=== PATIENT | female | born 1955 | race Caucasian/White ===

== ENCOUNTER 2016-05-20 19:43 | Emergency (ER) | payer BC ==
[2016-05-20 19:49] VITALS: TEMP 98.4
[2016-05-20] MEDS ORDERED: NS 1,000 ML IV ONE ×2 (20:15→20:31)
[2016-05-20 20:22] LABS: % IMMATURE GRANULYOCYTES 0.9 % (0.0-1.1); ABSOLUTE IMMATURE GRANULOCYTES 0.11 10^3/uL (0.00-0.10); ADD DIFF? NO; ADD MORPH? NO; ADD SCAN? NO; ATYPICAL LYMPHOCYTE FLAG 10 (0-99); FRAGMENT RBC FLAG 0 (0-99); HEMOGLOBIN 11.5 g/dL (12.6-16.3); LEFT SHIFT FLG 0 (0-99); LIPEMIA HEMOLYSIS FLAG 90 (0-99); MEAN CELL HEMOGLOBIN 29.4 pg (27.9-34.1); MEAN CELL HEMOGLOBIN CONCENTR. 33.8 g/dL (32.4-36.7); MEAN PLATELET VOLUME 9.6 fL (8.7-11.7); PLATELET CLUMPS FLAG 0 (0-99); PLATELET COUNT 316 10^3/uL (150-400); RED BLOOD CELL COUNT 3.91 10^6/uL (4.18-5.33); RED CELL DISTRIBUTION WIDTH 13.2 % (11.5-15.2)
[2016-05-20 20:30] LABS: ANION GAP 16 mEq/L (8-16); CALCIUM 9.8 mg/dL (8.5-10.4); CARBON DIOXIDE 20 mEq/l (22-31); CHLORIDE 95 mEq/L (97-110); CREATININE 3.9 mg/dL (0.6-1.0); GLOMERULAR FILTRATION RATE 12; GLUCOSE 276 mg/dL (70-100); POTASSIUM 4.5 mEq/L (3.5-5.2); SODIUM 131 mEq/L (134-144)
--- NOTE | 2016-05-20 20:31 | EDPHY ---
H & P Time Seen by Provider: 05/20/16 20:21 HPI/ROS: Chief complaint. Dehydrated HPI. Patient has had decreased appetite for several days. She is an insulin- dependent diabetic. She saw her PCP today who referred her to the emergency department for hydration. She has had nausea and vomiting for 3 days. She did take some insulin before coming to the ED. She was also diagnosed with a UTI earlier today and started on antibiotics and given a prescription for Zofran. No chest pain, shortness of breath, abdominal pain ROS Constitutional. no fever/chills, no weakness Eyes. no problems with vision ENT. no sore throat, no nasal drainage Cardiovascular. no chest pain Respiratory. no shortness of breath, no cough Abdominal. Nausea vomiting and decreased appetite . Urinary tract infection MS. no calf pain/swelling, no neck/back pain, no joint pain Skin. no rash Lymph. no swollen glands Neuro. no headache, no dizziness, no difficulty walking or with speech Past Medical/Surgical History: Past medical history significant for insulin-dependent diabetes, IBS, neuropathy , appendectomy, hypertension Social History: Single, daily smoker, no alcohol Smoking Status: Light smoker Physical Exam: General Appearance: Alert well-developed female mild distress vital signs are stable Eyes: Pupils equal and round no pallor or injection. ENT, mucous membranes are dry Respiratory: There are no retractions, lungs are clear to auscultation. Cardiovascular: Regular rate and rhythm. Gastrointestinal: Abdomen is soft and nontender, no masses, bowel sounds normal. Neurological: Awake and alert, sensory and motor exams grossly normal. Skin: Warm and dry, no rashes. Musculoskeletal: Neck is supple nontender. Extremities symmetrical, full range of motion. Psychiatric: Patient is oriented X 3, there is no agitation. Constitutional: Initial Vital Signs Temperature (C) 36.9 C 05/20/16 19:46 Heart Rate 93 05/20/16 19:46 Respiratory Rate 18 05/20/16 19:46 Blood Pressure 208/92 H 05/20/16 19:46 O2 Sat (%) 94 05/20/16 19:46 O2 Delivery Mode Room Air O2 (L/minute) 2 Allergies/Adverse Reactions: Insulins Allergy (Verified 12/06/14 22:21) Sulfa (Sulfonamide Antibiotics) Allergy (Verified 12/06/14 22:21) Tetracyclines Allergy (Verified 12/06/14 22:21) most antibiotics Allergy (Uncoded 12/06/14 22:21) Home Medications: Medication Instructions Recorded Chlordiaz/Clidiniu 5/2.5 [Librax 02/15/13 (RX)] Hydrocodone/Acetaminophen [Vicodin 02/15/13 5-300 mg Tablet] INSULIN LISPRO humALOG 75/25 02/15/13 [HumALOG MIX 75/25 SYRINGE] Amoxicillin Trihydrate 500 mg PO BID 9 Days 12/06/14 [Amoxicillin 500mg capsule] CIMETIDINE [TAGAMET HB] 12/06/14 Lisinopril [Zestril 2.5 mg (*)] 12/06/14 Medical Decision Making Procedures: IV normal saline with target of 2 L. Zofran for nausea ED Course/Re-evaluation: Recheck again after 2 L patient has been up to the bathroom. She feels better. She is taking oral fluids and crackers without difficulty Re-evaluation 10:00 p.m.. Patient is stable and drinking eating without nausea. I-STAT is repeated her blood sugar is now 191 Patient's creatinine is 3.2. Review of her old labs shows the creatinine to have been as high as 4. She is seeing Nephrology for her kidneys Differential Diagnosis: Dehydration, elevated glucose. Elevated but chronic renal insufficiency. - Data Points Laboratory Results: Laboratory Results 05/20/16 20:05 05/20/16 20:05 05/20/16 05/20/16 05/20/16 21:51 20:05 20:05 WBC 11.60 10^3/uL H 10^3/uL (3.80-9.50) RBC 3.91 10^6/uL L 10^6/uL (4.18-5.33) Hgb 11.5 g/dL L g/dL (12.6-16.3) POC Hgb 10.5 gm/dL L gm/dL (12.3-15.9) Hct 34.0 % L % (38.0-47.0) POC Hct 31 % L % (35.5-47.5) MCV 87.0 fL fL (81.5-99.8) MCH 29.4 pg pg (27.9-34.1) MCHC 33.8 g/dL g/dL (32.4-36.7) RDW 13.2 % % (11.5-15.2) Plt Count 316 10^3/uL 10^3/uL (150-400) MPV 9.6 fL fL (8.7-11.7) Neut % (Auto) 66.3 % % (39.3-74.2) Lymph % (Auto) 21.2 % % (15.0-45.0) Harris % (Auto) 7.0 % % (4.5-13.0) Eos % (Auto) 3.5 % % (0.6-7.6) Baso % (Auto) 1.1 % % (0.3-1.7) Nucleat RBC Rel Count 0.0 % % (0.0-0.2) Absolute Neuts (auto) 7.68 10^3/uL H 10^3/uL (1.70-6.50) Absolute Lymphs (auto) 2.46 10^3/uL 10^3/uL (1.00-3.00) Absolute Monos (auto) 0.81 10^3/uL H 10^3/uL (0.30-0.80) Absolute Eos (auto) 0.41 10^3/uL H 10^3/uL (0.03-0.40) Absolute Basos (auto) 0.13 10^3/uL H 10^3/uL (0.02-0.10) Absolute Nucleated RBC 0.00 10^3/uL 10^3/uL (0-0.01) Immature Gran % 0.9 % % (0.0-1.1) Immature Gran # 0.11 10^3/uL H 10^3/uL (0.00-0.10) POC Sodium 139 mEq/L mEq/L (134-144) Sodium 131 mEq/L L mEq/L (134-144) POC Potassium 4.1 mEq/L mEq/L (3.3-5.0) Potassium 4.5 mEq/L mEq/L (3.5-5.2) POC Chloride 103 mEq/L mEq/L (96-108) Chloride 95 mEq/L L mEq/L (97-110) Carbon Dioxide 20 mEq/l L mEq/l (22-31) Anion Gap 16 mEq/L mEq/L (8-16) POC BUN 39 mg/dL H mg/dL (7-23) BUN 47 mg/dL H mg/dL (7-23) Creatinine 3.9 mg/dL H mg/dL (0.6-1.0) POC Creatinine 3.2 mg/dL H mg/dL (0.6-1.2) Estimated GFR 12 Glucose 276 mg/dL H mg/dL (70-100) POC Glucose 191 mg/dL H mg/dL (70-100) Calcium 9.8 mg/dL mg/dL (8.5-10.4) Medications Given: Discontinued Medications Sodium Chloride (Ns) 1,000 mls @ 0 mls/hr IV ONCE ONE PRN Reason: Wide Open Stop: 05/20/16 20:16 Last Admin: 05/20/16 20:05 Dose: 1,000 mls Sodium Chloride (Ns) 1,000 mls @ 0 mls/hr IV ONCE ONE PRN Reason: Wide Open Stop: 05/20/16 20:32 Last Admin: 05/20/16 20:59 Dose: 1,000 mls Point of Care Test Results: 05/20/16 21:51 POC Sodium 139 POC Potassium 4.1 POC Chloride 103 POC BUN 39 H POC Creatinine 3.2 H POC Glucose 191 H Departure - Departure Disposition: Home, Routine, Self-Care Clinical Impression: Dehydration Condition: Good Instructions: Dehydration (ED) Additional Instructions: Keep track of your blood sugar. Frequent, small sips fluids well nauseated. Zofran if needed for nausea. Take antibiotics for urinary tract infection. Return for worsening symptoms. Follow up with Dr. Palomino to continue workup of your kidney function. See Dr. James in 1 or 2 days if not improving Referrals: Aida James MD [Primary Care Provider] - 1-2 days without fail
[2016-05-20 22:28] VITALS: BP 188/86; PULSE 75; RESP 16; O2SAT 100
== END 2016-05-20 22:29 | disposition home or self-care (01) ==
DX: E86.0 Dehydration (principal); E11.9 Type 2 diabetes mellitus without complications; I10 Essential (primary) hypertension; F17.200 Nicotine dependence, unspecified, uncomplicated; Z79.4 Long term (current) use of insulin
CPT/HCPCS: 82947-QW

== ENCOUNTER 2018-02-04 13:11 | Emergency (ER) | payer BC ==
--- NOTE | 2018-02-04 14:32 | EDPHY ---
H & P Time Seen by Provider: 02/04/18 14:18 HPI/ROS: CHIEF COMPLAINT: High blood pressure, resolved confusion HISTORY OF PRESENT ILLNESS: Patient is a 62-year-old female with a history of hypertension. She states that her hypertension has been more difficult to control over the past couple of weeks. She states that she was worried that she was slightly confused because she slept through her alarm. Immediately after waking she did not know what day was. This quickly resolved. She has had no confusion since waking. She denies any headache. No neck or back pain. No chest pain or shortness of breath. No nausea or vomiting. She took her blood pressure at home and was 200/90. She came to the emergency department for evaluation. REVIEW OF SYSTEMS: 10 systems were reveiwed and are negative with the exception of the elements mentioned in the history of present illness. Past Medical/Surgical History: Includes IBS, neuropathy, carpal tunnel syndrome, osteoporosis, diabetes type 1 , hypertension Past surgical history: Noncontributory Social history: Patient does not smoke Smoking Status: Light smoker Physical Exam: 36.8, 208/84, 82, 16, 95% on room air GENERAL: Well-appearing, in no acute distress, alert. HEENT: Eyes normal to inspection, normal pharynx, no signs of dehydration. NECK: Normal, supple. RESPIRATORY: Clear to auscultation bilaterally, no rales, rhonchi or wheezing. CVS: Regular rate and rhythm, no rubs, murmurs, or gallops. ABDOMEN: Soft, nontender, nondistended, no organomegaly. BACK: Normal to inspection, no CVA tenderness. SKIN: Normal color, no rash, warm, dry. No pallor. EXTREMITIES: No pedal edema, no calf tenderness, no Homans sign or cords, no joint swelling. NEURO/PSYCH: Alert and oriented, normal mood and affect, normal motor sensory exam. No obvious cranial nerve deficit. Constitutional: Initial Vital Signs Temperature (C) 36.8 C 02/04/18 13:14 Heart Rate 82 02/04/18 13:14 Respiratory Rate 16 02/04/18 13:14 Blood Pressure 208/84 H 02/04/18 13:14 O2 Sat (%) 95 02/04/18 13:14 O2 Delivery Mode Room Air Allergies/Adverse Reactions: Insulins Allergy (Verified 02/04/18 13:13) Sulfa (Sulfonamide Antibiotics) Allergy (Verified 02/04/18 13:13) Tetracyclines Allergy (Verified 02/04/18 13:13) most antibiotics Allergy (Uncoded 02/04/18 13:13) Home Medications: Medication Instructions Recorded Chlordiaz/Clidiniu 5/2.5 [Librax 02/15/13 (RX)] INSULIN LISPRO humALOG 75/25 02/15/13 [HumALOG MIX 75/25 SYRINGE] CIMETIDINE [TAGAMET HB] 12/06/14 Amlodipine Besylate 02/04/18 Carvedilol 02/04/18 Carvedilol [Coreg] 12.5 mg PO BID 20 Days tablet 02/04/18 Doxazosin Mesylate 02/04/18 hydrALAZINE 02/04/18 Medical Decision Making - Diagnostics Imaging Results: Imaging Impressions Head CT 02/04/18 15:09 Impression: 1. Indeterminate partially calcified region in the posterior left frontal lobe , which could be related to vascular malformation, sequela of prior infection, malignancy, or other etiology. Recommend MR brain, with contrast, for further evaluation. 2. Hypodensity in the anterior right thalamus possibly related to old lacunar infarct. 3. Diffuse cerebral atrophy with periventricular and subcortical low attenuation consistent with chronic microvascular ischemic gliosis. 4. Additional findings, as above. Findings discussed with Brandee Dillard M.D., on February 04, 2018 at 1536. ED Course/Re-evaluation: In the emergency department I discussed possible etiologies with the patient. I answered all her questions. IV was placed. Laboratory studies, head CT and EKG were ordered. I attempted to track down the patient's medication list. The obtained the patient's blood pressure medications. She takes carvedilol 6.2 mg twice daily, amlodipine 10 mg daily and hydralazine 25 mg twice daily. Head CT: There is an indeterminate partially cough spine area and the posterior left frontal lobe. Recommend MRI as an outpatient. Hypodensity in the anterior right thalamus possibly related to an old lacunar infarct. There is diffuse cerebral atrophy. Patient's chemistry panels is notable for us low sodium 134. This is consistent with her previous values. The patient also has a mildly elevated potassium of 5.4. She has had elevated potassium in the past. Her creatinine is elevated 2.9. This is consistent with her previous values. Patient's troponin is negative. CBC is remarkable for anemia. Again this is consistent with her previous values. I discussed case with Dr. Em who was on-call for Dr. Eng. We reviewed the patient's medication and her workup thus far. He recommended increasing the patient's carvedilol to 12.5 mg twice daily. I informed him of the CT results and the need for outpatient MRI imaging. He will arrange to have this done. His office will call the patient tomorrow to arrange close follow-up. I discussed this plan with the patient. I answered all her questions. She was given a prescription. She is given warnings prior to leaving. Differential Diagnosis: My differential includes but is not limited to ischemic CVA, hemorrhagic CVA, dissection, aneurysm, hypertensive emergency, hypertensive urgency, electrolyte abnormality, sugar abnormality, ACS, acute HI - Data Points Laboratory Results: Laboratory Results 02/04/18 15:35 02/04/18 15:35 02/04/18 02/04/18 02/04/18 15:39 15:35 15:35 WBC 9.96 10^3/uL H 10^3/uL (3.80-9.50) RBC 3.76 10^6/uL L 10^6/uL (4.18-5.33) Hgb 10.8 g/dL L g/dL (12.6-16.3) Hct 32.1 % L % (38.0-47.0) MCV 85.4 fL fL (81.5-99.8) MCH 28.7 pg pg (27.9-34.1) MCHC 33.6 g/dL g/dL (32.4-36.7) RDW 13.8 % % (11.5-15.2) Plt Count 260 10^3/uL 10^3/uL (150-400) MPV 9.6 fL fL (8.7-11.7) Neut % (Auto) 66.4 % % (39.3-74.2) Lymph % (Auto) 23.5 % % (15.0-45.0) [place] % (Auto) 5.0 % % (4.5-13.0) Eos % (Auto) 3.8 % % (0.6-7.6) Baso % (Auto) 1.0 % % (0.3-1.7) Nucleat RBC Rel Count 0.0 % % (0.0-0.2) Absolute Neuts (auto) 6.61 10^3/uL H 10^3/uL (1.70-6.50) Absolute Lymphs (auto) 2.34 10^3/uL 10^3/uL (1.00-3.00) Absolute Monos (auto) 0.50 10^3/uL 10^3/uL (0.30-0.80) Absolute Eos (auto) 0.38 10^3/uL 10^3/uL (0.03-0.40) Absolute Basos (auto) 0.10 10^3/uL 10^3/uL (0.02-0.10) Absolute Nucleated RBC 0.00 10^3/uL 10^3/uL (0-0.01) Immature Gran % 0.3 % % (0.0-1.1) Immature Gran # 0.03 10^3/uL 10^3/uL (0.00-0.10) Sodium 134 mEq/L L mEq/L (135-145) Potassium 5.4 mEq/L H mEq/L (3.5-5.2) Chloride 101 mEq/L mEq/L (97-110) Carbon Dioxide 23 mEq/l mEq/l (22-31) Anion Gap 10 mEq/L mEq/L (6-14) BUN 30 mg/dL H mg/dL (7-23) Creatinine 2.9 mg/dL H mg/dL (0.6-1.0) Estimated GFR 16 Glucose 391 mg/dL H mg/dL (70-100) Calcium 8.8 mg/dL mg/dL (8.5-10.4) POC Troponin I 0.01 ng/mL ng/mL (0.00-0.08) Point of Care Test Results: Chemistry 02/04/18 15:39 POC Troponin I 0.01 ng/mL ng/mL (0.00-0.08) Departure - Departure Disposition: Home, Routine, Self-Care Clinical Impression: Hypertension Qualifiers: Hypertension type: unspecified Qualified Code(s): I10 - Essential (primary) hypertension Condition: Good Instructions: Hypertension (ED) Additional Instructions: Return to the emergency department if you developed increasing headache, weakness, numbness, dizziness, lightheadedness, chest pain or any other concerns. You been given a prescription for increased dose of your carvedilol. Your currently taking carvedilol 6.25 mg twice daily. You will increase this dose to 12.5 mg twice daily. Referrals: Aida James MD [Primary Care Provider] - 5-7 days, call for appt.
[2018-02-04 15:50] LABS: PLATELET COUNT 260 10^3/uL (150-400)
[2018-02-04 16:44] VITALS: BP 216/94
--- NOTE | 2018-02-04 20:52 | CPEKG ---
Test Reason : OPEN Blood Pressure : / mmHG Vent. Rate : 066 BPM Atrial Rate : 066 BPM P-R Int : 163 ms QRS Dur : 074 ms QT Int : 434 ms P-R-T Axes : 052 038 073 degrees QTc Int : 455 ms Sinus rhythm Consider left ventricular hypertrophy Confirmed by Brandee Dillard ([id number] on 02/04/2018 8:51:25 PM Referred By: Confirmed By:Brandee Dillard
== END 2018-02-04 17:15 | disposition home or self-care (01) ==
LOC: SUPCPDRO 13:11
DX: I10 Essential (primary) hypertension (principal); R93.0 Abnormal findings on diagnostic imaging of skull and head, not elsewhere classified; E10.9 Type 1 diabetes mellitus without complications; F17.200 Nicotine dependence, unspecified, uncomplicated; Z79.4 Long term (current) use of insulin
CPT/HCPCS: 84484-ER

== ENCOUNTER → 2018-03-31 | Outpatient (CLI) | payer BC, OTHER | LOC: FIMAGING 18:33 | PROVIDERS: ATTEND Internal Medicine | DX: R94.02 Abnormal brain scan (principal); R90.82 White matter disease, unspecified ==

== ENCOUNTER 2018-08-12 14:14 | Emergency (ER) | payer OTHER | END 2018-08-12 15:00 | disposition home or self-care (01) | LOC: CED 14:14 ==

== ENCOUNTER → 2018-08-12 | Outpatient (CLI) | payer OTHER | LOC: CIMAGING 13:50 ==